=== PATIENT | male | born 1950 | race Caucasian/White ===

== ENCOUNTER 2022-02-16 15:06 | Outpatient (RCR) | payer MEDICARE, OTHER | END 2022-02-18 | disposition home or self-care (01) | PROVIDERS: ATTEND Nurse Practitioner Family | DX: M19.042 Primary osteoarthritis, left hand (principal); M19.041 Primary osteoarthritis, right hand ==

== ENCOUNTER 2022-02-27 15:23 | Outpatient (RCR) | payer MEDICARE, OTHER | END 2022-02-27 17:00 | disposition home or self-care (01) | PROVIDERS: ATTEND Nurse Practitioner Family | DX: M19.041 Primary osteoarthritis, right hand (principal); M19.042 Primary osteoarthritis, left hand ==

== ENCOUNTER → 2022-07-24 | Outpatient (CLI) | payer MEDICARE, OTHER ==
--- NOTE | 2022-07-24 16:44 | Diagnostic Imaging Report ---
INDICATION: Overuse with pain. 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 No fracture or bony destructive process. No soft tissue calcifications or opaque loose body. IMPRESSION: Arthritic changes to the shoulder girdle but no acute appearing bony abnormality. Dictated by: Dictated on workstation # [id number]
== END ==
LOC: RAD 15:31
PROVIDERS: ATTEND Nurse Practitioner Family
DX: M19.011 Primary osteoarthritis, right shoulder (principal)
CPT/HCPCS: 73030

== ENCOUNTER → 2022-08-10 | Outpatient (CLI) | payer MEDICARE, OTHER ==
--- NOTE | 2022-08-10 13:54 | Diagnostic Imaging Report ---
PROCEDURE: MRI right joint upper extremity without contrast. TECHNIQUE: Multiplanar, multisequence non contrast-enhanced MRI of the right upper extremity was accomplished. INDICATION: Right shoulder pain injury using a chainsaw. EXAMINATION: Right shoulder MRI without contrast 08/10/2022. FINDINGS: There are full-thickness retracted tears of the supraspinatus and infraspinatus tendons. Retraction is 3.6 cm. Secondary widening of the glenohumeral joint space with mild superior subluxation of the humeral head is noted. There is a partial-thickness articular sided tear of the subscapularis tendon. The long head of biceps tendon is diffusely enlarged with tendinosis noted. More proximally there is a intrasubstance partial tear. The biceps tendon anchor appears intact. There is diffuse abnormal high signal throughout the posterior aspect of the superior labrum highly suspicious for a tear. This extends to involve the inferior labrum as well better characterized with postcontrast imaging as clinically indicated. There is narrowing, spurring and edema at the acromioclavicular joint. There is no acute osseous abnormality. There is fluid within the glenohumeral joint space with fluid throughout the subdeltoid subacromial bursa. There is atrophy and fatty infiltration throughout the supraspinatus and infraspinatus muscles. Subscapularis muscle is fairly well maintained. Visualized axilla is unremarkable. IMPRESSION: 1. Full-thickness retracted tears of the supraspinatus and infraspinatus tendons with a partial articular sided tear of the subscapularis tendon. 2. Diffuse tendinosis with a likely intrasubstance tear of the proximal biceps tendon. 3. Joint effusion with fluid extending throughout the subdeltoid subacromial bursa. 4. Suspected diffuse labral tear better characterized with postcontrast imaging if clinically indicated. Dictated by: Dictated on workstation # [id number]
== END ==
LOC: RAD 08:57
PROVIDERS: ATTEND Nurse Practitioner Family
DX: M75.121 Complete rotator cuff tear or rupture of right shoulder, not specified as traumatic (principal); M67.813 Other specified disorders of tendon, right shoulder
CPT/HCPCS: 73221